=== PATIENT | male | born 1995 | race Caucasian/White ===

== ENCOUNTER 2019-12-16 19:12 | Emergency (ER) | payer OTHER, SELFPAY ==
--- NOTE | ~2019-12-16 | XR_ITS ---
EXAMINATION: XR knee LT min 4V EXAM DATE: 12/16/2019 19:43 INDICATION: Jumping On Trampoline 12/15/19. Generalized Pain. Initial encounter. TECHNIQUE: Left knee frontal, crosstable lateral, orthogonal oblique projections for interpretation. Raemon patellar projection. There are no prior studies for comparison. FINDINGS: No evidence osteochondral defect or joint body in the left knee joint. There are no acute fractures or dislocations identified. There is no subcutaneous gas. The soft tissue is unremarkabl e. There are no radiopaque foreign bodies. No joint effusion. IMPRESSION: No acute osseous findings. Reviewed, dictated and finalized at location A. IMPRESSION: No acute osseous findings.
[2019-12-16 19:17] VITALS: BP 160/87; PULSE 81; RESP 20; TEMP 36.6; O2SAT 100
--- NOTE | 2019-12-16 19:48 | ED.LOWEXIN ---
HPI - Extremity Injury (Lower) General Chief Complaint: Extremity Injury, Lower Stated Complaint: left knee pain Time Seen by Provider: 12/16/19 19:35 Source: patient and RN notes reviewed Mode of arrival: ambulatory Limitations: no limitations History of Present Illness HPI Narrative: 24-year-old male who presents to [facility] care with complaints of injury to his left knee yesterday around 11 AM yesterday when he was jumping on a trampoline and came down on his knee wrong. Patient states that pain has not increased but remains constant to medial aspect of left knee. Patient states that he has been wearing a knee brace to his left knee while working for some added support. Patient has no redness, swelling, or bruising noted to left knee with full ROM noted and patient is able to apply full weight bearing without increase pain to left knee. MD complaint: knee injury Injury: Left: knee Type of Injury: blunt Place: street/outdoors (trampoline) Severity: moderate Severity scale (1-10): 6 Relieving factors: NSAID and rest Exacerbating factors: weight bearing and movement Context: direct blow Associated symptoms: other (discomfort medial aspect) Other symptoms: none Treatments prior to arrival: NSAIDS and other (wearing knee brace) Review of Systems Review of Systems: Narrative: CONSTITUTIONAL: Denies fever, chills, or sweats. EYES: Denies visual changes, redness, or discharge. ENT: Denies rhinorrhea, congestion, sore throat, or otalgia. CARDIOVASCULAR: Denies chest pain, palpitations, or edema. RESPIRATORY: Denies cough or dyspnea. GASTROINTESTINAL: Denies abdominal pain, nausea, vomiting, or diarrhea. GENITOURINARY: Denies dysuria or hematuria. SKIN: Denies rash or itching. MUSCULOSKELETAL: Denies back pain, positive for joint pain, or myalgia. NEUROLOGIC: Denies headache, numbness, or weakness. PSYCHIATRIC: Denies anxiety or depression. All systems reviewed & are unremarkable except as noted in HPI and below PMFSH Past Medical History Medical History (Updated 12/20/19 @ 10:31 by Isis Penny NP) No significant medical problems Surgical History Surgical History (Updated 12/20/19 @ 10:33 by Isis Penny NP) No history of previous surgery Social History Social History (Updated 12/16/19 @ 19:53 by Isis Penny NP) Smoking status: Never smoker Living arrangements: with family Gender identity (if verbalized by the patient): Male Comments At time of signature, agree with nursing past medical, surgical, social history. There is no relevant family history pertinent to the presenting complaint Exam Narrative: Exam Narrative: GENERAL: Well-appearing, well-nourished, and in no acute distress. HEAD: Normocephalic, atraumatic. EYES: PERRLA and EOMI. ENT: Nares clear, no rhinorrhea or epistaxis. Mucous membranes moist. NECK: Supple. CHEST: Clear to auscultation. No respiratory distress. HEART: Regular rate and rhythm. No murmur heard. Normal peripheral pulses. ABDOMEN: Soft, nontender, nondistended, normal active bowel sounds. EXTREMITIES: Normal range of motion. No edema.Pain to medial aspect of left knee after falling onto knee while jumping on trampoline with no bruising or swelling noted to left knee, negative drawer test, no increase in discomfort with inversion or eversion of lower left leg, no crepitus noted to knee on bending or flexion. Adequate circulation, sensation, and mobility to left lower leg. SKIN: Warm, dry, no rash. NEURO: No focal deficits. Alert and oriented x3. Course Vital Signs Vital signs: Vital Signs Temperature 36.6 C 12/16/19 19:17 Pulse Rate 81 12/16/19 19:17 Respiratory Rate 20 12/16/19 19:17 Blood Pressure 160/87 H 12/16/19 19:17 Pulse Oximetry 100 12/16/19 19:17 Temperature 36.6 C 12/16/19 19:17 Pulse Rate 81 12/16/19 19:17 Respiratory Rate 20 12/16/19 19:17 Blood Pressure 160/87 H 12/16/19 19:17 Pulse Oximetry 100 12/16/19 19:17 MDM
== END 2019-12-16 20:03 | disposition home or self-care (01) ==
PROVIDERS: Emergency Provider Registered Nurse
DX: S86.812A Strain of other muscle(s) and tendon(s) at lower leg level, left leg, initial encounter (principal); X50.9XXA Other and unspecified overexertion or strenuous movements or postures, initial encounter; Y93.44 Activity, trampolining
CPT/HCPCS: 73564; 99203; G0463